=== PATIENT | female | born 1960 | race African-American/Black ===

== ENCOUNTER 2019-03-10 00:01 | Emergency (ER) | payer OTHER ==
[2019-03-10 01:48] LABS: APPEARANCE,URINE CLOUDY; BILIRUBIN,URINE NEGATIVE (NEGATIVE); COLOR,URINE YELLOW; GLUCOSE, URINE NEGATIVE (NEGATIVE); KETONES,URINE NEGATIVE (NEGATIVE); LEUKOCYTE ESTERASE,URINE LARGE (NEGATIVE); NITRITE,URINE NEGATIVE (NEGATIVE); PROTEIN,URINE 100 mg/dL (NEGATIVE); URINE SPECIFIC GRAVITY 1.013; UROBILINOGEN,URINE NEGATIVE mg/dL (<2.0)
[2019-03-10] MEDS ORDERED: CEPHALEXIN 500 MG CAPSULE PO ONE (02:30)
[2019-03-10] MEDS ORDERED: PHENAZOPYRIDINE HCL 100 MG TABLET PO ONE (02:30)
--- NOTE | 2019-03-10 02:31 | ER Document Report ---
ED GI/ - General Chief Complaint: Urinary Frequency Stated Complaint: URINARY PROBLEMS Time Seen by Provider: 03/10/19 02:17 Primary Care Provider: OMERO BECK MD [Primary Care Provider] - Follow up as needed Notes: Patient is a 58-year-old female who presents to the emergency department with a chief complaint of low back pressure. Patient states that 3 days ago she developed urinary symptoms to include pressure when she urinates. Patient states she is also had left lower back pain, nausea with 2 episodes of vomiting yesterday. Patient states that since vomiting she has been able to tolerate liquids. Patient denies fever. Patient denies chills. Patient denies abdominal pain. Patient states she has a history of a urinary tract infections and that this feels the same. TRAVEL OUTSIDE OF THE [place] IN LAST 30 DAYS: No - Related Data Allergies/Adverse Reactions: No Known Allergies Allergy (Unverified 03/10/19 02:35) Past Medical History - General Information source: Patient - Social History Smoking Status: Unknown if Ever Smoked Cigarette use (# per day): No Chew tobacco use (# tins/day): No Smoking Education Provided: No Frequency of alcohol use: None Drug Abuse: None Lives with: Alone Family History: None Patient has suicidal ideation: No Patient has homicidal ideation: No - Past Medical History Cardiac Medical History: Reports: Hx Hypertension - Off medication x 2 years Pulmonary Medical History: Reports: None EENT Medical History: Reports: None Neurological Medical History: Reports: None Endocrine Medical History: Reports: None Renal/ Medical History: Reports: None. Denies: Hx Peritoneal Dialysis Malignancy Medical History: Reports: None GI Medical History: Reports: None Musculoskeletal Medical History: Reports None Skin Medical History: Reports None Psychiatric Medical History: Reports: None Traumatic Medical History: Reports: None Infectious Medical History: Reports: None Past Surgical History: Reports: None Review of Systems - Review of Systems Constitutional: No symptoms reported EENT: No symptoms reported Cardiovascular: No symptoms reported Respiratory: No symptoms reported Gastrointestinal: No symptoms reported Genitourinary: See HPI Female Genitourinary: No symptoms reported Musculoskeletal: No symptoms reported Skin: No symptoms reported Hematologic/Lymphatic: No symptoms reported Neurological/Psychological: No symptoms reported Physical Exam - Vital signs Vitals: Temp Pulse Resp BP Pulse Ox 98.4 F 92 22 H 169/111 H 97 03/10/19 00:41 03/10/19 00:41 03/10/19 00:41 03/10/19 00:41 03/10/19 00:41 Interpretation: Hypertensive - Notes Notes: GENERAL: Well-appearing, well-nourished and in no acute distress. HEAD: Atraumatic, normocephalic. EYES: Pupils equal round and reactive to light, extraocular movements intact, sclera anicteric, conjunctiva are normal. ENT: TMs normal, nares patent, oropharynx clear without exudates. Moist mucous membranes. NECK: Normal range of motion, supple without lymphadenopathy or JVD. LUNGS: Breath sounds clear to auscultation bilaterally and equal. No wheezes rales or rhonchi. HEART: Regular rate and rhythm without murmurs, rubs or gallops. ABDOMEN: Soft, nontender, normoactive bowel sounds. No guarding, no rebound. No masses appreciated. BACK: No cervical, thoracic, lumbar midline tenderness. No saddle anesthesia, normal distal neurovascular exam. No CVA tenderness. Mild left paraspinal tenderness. GENITOURINARY: Deferred. EXTREMITIES: Normal range of motion, no pitting or edema. No clubbing or cyanosis. NEUROLOGICAL: Cranial nerves II through XII grossly intact. Normal speech, normal gait. PSYCH: Normal mood, normal affect. SKIN: Warm, Dry, normal turgor, no rashes or lesions noted. Course - Re-evaluation Re-evalutation: 03/10/19 02:39 After a benign physical examination I did discuss the urinalysis results with the patient. Patient will be given a prescription for Keflex as well as Pyridium and Zofran. I did explain the patient to increase fluid intake. Patient placed on strict return precautions to include flank pain, fever, vomiting that is not controlled with the antinausea medicine or any other concerning signs or symptoms. Patient verbalized understanding and denies questions. Added on a urine culture. - Vital Signs Vital signs: Temp Pulse Resp BP Pulse Ox 98.4 F 92 22 H 169/111 H 97 03/10/19 00:41 03/10/19 00:41 03/10/19 00:41 03/10/19 00:41 03/10/19 00:41 - Laboratory Laboratory results interpreted by me: 03/10/19 01:30 Urine Protein 100 H Urine Blood LARGE H Ur Leukocyte Esterase LARGE H Discharge - Discharge Clinical Impression: Urinary tract infection Qualifiers: Urinary tract infection type: acute cystitis Hematuria presence: with hematuria Qualified Code(s): N30.01 - Acute cystitis with hematuria Condition: Stable Disposition: HOME, SELF-CARE Additional Instructions: Today you are seen in the emergency department for urinary symptoms. You were diagnosed with a urinary tract infection. You are being treated with a seven- day course of antibiotics which you need to complete. You are also being given a medication called Pyridium which is to help with bladder spasming and discomfort. Please drink plenty of fluids and return to the emergency department for fever, chills, flank pain, inability to urinate or worsening signs or symptoms. You did have a urine culture which was obtained today. We will call you within the next few days if we need to change her antibiotic. In the emergency department your blood pressure was elevated. Please follow-up with your primary care physician for reevaluation of this as you may need to be placed back on blood pressure medication. From the emergency department for headache, dizziness or any other concerning signs or symptoms. Urinary Tract Infection Your evaluation indicates that you have a urinary tract infection. This is due to germs growing in the bladder. This is a common problem. This infection usually responds quickly to antibiotics. Your antibiotic should be taken exactly as prescribed. Drink plenty of fluids -- three to four quarts a day. Occasionally, a bladder anesthetic will be prescribed to help stop the feeling of urgency until the antibiotic has a chance to clear the infection. This may cause your urine to be dark orange. Certain urine infections require a culture. If the doctor obtained a culture, the results will be back in two days. You should call to see if a change in treatment is needed. A repeat urinalysis after you finish treatment is often recommended. The physician will let you know if further testing is required. Call the doctor if you develop fever, chills, flank pain, inability to urinate, or blood in the urine. Prescriptions: Cephalexin Monohydrate [Keflex 500 mg Capsule] 500 mg PO BID 7 Days capsule Phenazopyridine HCl [Pyridium] 100 mg PO TID #6 tablet Forms: Elevated Blood Pressure Referrals: OMERO BECK MD [Primary Care Provider] - Follow up as needed
[2019-03-10] MEDS ORDERED: ONDANSETRON ODT 4 MG TAB (6 TAB/ER DISP) PO PRN (02:37)
[2019-03-10 02:46] VITALS: BP 168/104
== END 2019-03-10 02:46 | disposition home or self-care (01) ==
LOC: ER 00:01
DX: N30.01 Acute cystitis with hematuria (principal); R35.0 Frequency of micturition; M54.5 Low back pain; R11.2 Nausea with vomiting, unspecified; I10 Essential (primary) hypertension
CPT/HCPCS: 99283; 87086; 81001; J3490